=== PATIENT | female | born 1980 | race American Indian/Alaskan Native ===

== ENCOUNTER 2017-02-28 20:22 | Inpatient (IN) | payer MEDICAID ==
[2017-02-28 21:06] LABS: RBC URINE 3 /hpf (0-3); URINE BILIRUBIN NEGATIVE (NEGATIVE); URINE BLOOD NEGATIVE (NEGATIVE); URINE COLOR Yellow (YELLOW); URINE GLUCOSE (UA) NORMAL (Normal); URINE KETONE NEGATIVE (NEGATIVE); URINE LEUKOCYTE ESTERASE TRACE Leu/uL (Negative); URINE PROTEIN NEGATIVE (NEGATIVE); URINE UROBILINOGEN NORMAL mg/dL (0.2-1.0); WBC URINE 13 /hpf (0-5)
--- NOTE | 2017-02-28 21:09 | C.PDOC ---
History Of Present Illness A 36 y/o female comes in c/o heroin and cocaine abuse with her last cocaine use today. Pt request detox of heroin and cocaine. Pt denies suicidal or homicidal ideation, or any physical complaints at this time. Time Seen by Provider: 02/28/17 20:56 Chief Complaint (Nursing): Substance Abuse History Per: Patient History/Exam Limitations: intoxication Onset/Duration Of Symptoms: Hrs Current Symptoms Are (Timing): Still Present Suicide/Self Injury Attempted (Context): None Modifying Factor(s): Cocaine, Other (Heroin) Severity: Mild Associated Symptoms: denies: Suicidal Thoughts, Suicidal Plan Involuntary Hold By: None Recent travel outside of the [place]: No Additional History Per: Patient Past Medical History Reviewed: Historical Data, Nursing Documentation, Vital Signs Vital Signs: Last Vital Signs Temp 97.8 F 02/28/17 22:30 Pulse 67 02/28/17 22:30 Resp 20 02/28/17 22:30 BP 123/81 02/28/17 22:30 Pulse Ox 98 02/28/17 22:30 Family History: States: Unknown Family Hx - Social History Hx Alcohol Use: No Hx Substance Use: Yes - Immunization History Hx Tetanus Toxoid Vaccination: No Hx Influenza Vaccination: No Hx Pneumococcal Vaccination: No Review Of Systems Constitutional: Positive for: Other (Heroin and cocaine abuse). Negative for: Fever, Chills Gastrointestinal: Negative for: Nausea, Vomiting, Abdominal Pain, Diarrhea Neurological: Negative for: Other (LOC) Psych: Negative for: Suicidal ideation, Other (Homicidal ideation) Physical Exam - Physical Exam Appears: No Acute Distress Skin: No Rash Head: Atraumatic, Normacephalic Eye(s): bilateral: Normal Inspection, PERRL Oral Mucosa: Moist Neck: Supple Chest: No Tenderness Cardiovascular: Rhythm Regular, Other (Radial pulse 2+ bilaterally.) Respiratory: Other (Clear to auscultation bilaterally.) Gastrointestinal/Abdominal: Soft, No Tenderness, No Distention Back: No CVA Tenderness Extremity: No Tenderness, No Swelling Neurological/Psych: Other (Alert, no focal deficit.) ED Course And Treatment - Laboratory Results Result Diagrams: 02/28/17 21:14 02/28/17 21:14 O2 Sat by Pulse Oximetry: 97 (RA) Pulse Ox Interpretation: Normal Medical Decision Making Medical Decision Making: Impression: 36 y/o female here 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 Metronidazole administered. Accepted to detox by Dr. Martin. ED OBSERVATION Date of observation admission: 02/28/17 Time of observation admission: 21:15 - Observation admission statement Patient is being placed in observation because:: Heroin and cocaine detox - Goals of Observation Goals of observation are:: Sobriety Disposition - Disposition Disposition: HOSPITALIZED Disposition Time: 22:05 Condition: STABLE - Clinical Impression Clinical Impression: Opioid use disorder, severe, dependence - Scribe Statement The provider has reviewed the documentation as recorded by the Scribe Alden jackson All medical record entries made by the Scribe were at my direction and personally dictated by me. I have reviewed the chart and agree that the record accurately reflects my personal performance of the history, physical exam, medical decision making, and the department course for this patient. I have also personally directed, reviewed, and agree with the discharge instructions and disposition.
[2017-02-28 21:17] LABS: BASO # 0.1 K/uL (0.0-0.2); BASO % 0.7 % (0.0-2.0); EOS # 0.4 K/uL (0.0-0.7); EOS % 3.8 % (0.0-4.0); HEMATOCRIT 37.3 % (34.0-47.0); LYMPH # 2.9 K/uL (1.0-4.3); MEAN CELL VOLUME 93.1 fL (81.0-99.0); MEAN CORPUSCULAR HEMOGLOBIN 32.1 pg (27.0-31.0); MEAN CORPUSCULAR HGB CONC 34.5 g/dL (33.0-37.0); MEAN PLATELET VOLUME 7.6 fL (7.2-11.7); MONO # 0.7 K/uL (0.0-0.8); MONO % 7.3 % (0.0-10.0); RED CELL DISTRIBUTION WIDTH 12.8 % (11.5-14.5); WHITE BLOOD COUNT 9.8 K/uL (4.8-10.8)
[2017-02-28 21:25] LABS: CHLORIDE 106 mmol/L (98-107); SODIUM 143 mmol/L (132-148)
[2017-02-28 21:26] LABS: POTASSIUM 3.9 mmol/L (3.6-5.2)
[2017-02-28 21:27] LABS: GFR AFRICAN-AMERICAN > 60
[2017-02-28 21:28] LABS: ALB/GLOB RATIO 1.2 (1.0-2.1); ALKALINE PHOSPHATASE 89 U/L (38-126); ALT/SGPT 25 U/L (9-52); AST/SGOT 34 U/L (14-36); BILIRUBIN,TOTAL 0.4 mg/dL (0.2-1.3); BLOOD UREA NITROGEN 13 mg/dL (7-17); CARBON DIOXIDE 27 mmol/L (22-30); GLUCOSE,RANDOM 91 mg/dL (65-105); TOTAL PROTEIN 7.2 g/dL (6.3-8.3)
[2017-02-28 21:29] LABS: ALCOHOL SERUM < 10 mg/dl (0-10)
[2017-03-01] MEDS ORDERED: Aluminum Hydroxide/Magnesium Hydroxide Susp (30 mL) PO PRN (00:39)
[2017-03-01 05:51] VITALS: RESP 18
[2017-03-01] MEDS ORDERED: Buprenorphine Hydrochloride 2 mg SL ONE ×2 (09:53→11:00)
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
[2017-03-02] MEDS: Buprenorphine Hydrochloride 2 mg SL SCH (09:00)
[2017-03-02] MEDS: Benzocaine 10% Oral Anesthetic (12 ml) MM PRN (11:36)
--- NOTE | 2017-03-02 11:37 | PCM.PYCHPN ---
Psychiatric Progress Note - Psychiatric Progress Note Patient seen today, length of contact: 17 min Patient Chief Complaint: "I am confused." Problems Identified/Issues Discussed: The pt is seen, chart reviewed, case discussed with staff. The pt is compliant with medications and reports no side-effects. Symptoms are improving but needs more time to stabilize. After care discussed, she says hse is confused about what she wants, ie rehab vs IOP vs MAT. Support and psychoeducation given. She decided to go to an IOP and consider MAT as well, for now. Medication Change: Yes (detox changes daily) Medical Record Reviewed: Yes Mental Status Examination - Cognitive Function Orientation: Person, Place, Situation, Time Memory: Intact Attention: Poor Concentration: Poor Association: WNL Fund of Knowledge: Poor - Mood Mood: Anxious - Affect Affect: Constricted - Speech Speech: Appropriate - Formal Thought Process Formal Thought Process: No Impairment - Suicidal Ideation Suicidal Ideation: No - Homicidal Ideation Homicidal Ideation: No Goal/Treatment Plan - Goal/Treatment Plan Need for Continued Stay: Discharge may exacerbated symptoms, Severe functional impairment Progress Toward Problem(s) and Goals/Treatment Plan: Opioids: -Subutex detox -As needed medications -Support and psychoeducation -Attend groups and activities -MA for abstinence and CBT for relapse prevention Cocaine: -Gabapentin for withdrawal symptoms -As needed medications -Support and psychoeducation -Attend groups and activities -MA for abstinence and CBT for relapse prevention Tobacco: -Patch -MA for abstinence After care: Refer to an IOP and MAT georges Thompson Estimated Date of D/C: 01/02/17
[2017-03-03] MEDS: Buprenorphine Hydrochloride 2 mg SL SCH (09:15)
[2017-03-03] MEDS: Benzocaine 10% Oral Anesthetic (12 ml) MM PRN (12:26)
--- NOTE | 2017-03-03 14:09 | PCM.PYCHPN ---
Psychiatric Progress Note - Psychiatric Progress Note Patient seen today, length of contact: 15 min Patient Chief Complaint: "I am OK" Problems Identified/Issues Discussed: The pt is seen, chart reviewed, case discussed with staff. The pt is compliant with medications and reports no side-effects. Symptoms are improving but needs more time to stabilize. After care discussed, she says she now wants to go to in [facility]. Support given NV used. Medication Change: Yes (detox changes daily) Medical Record Reviewed: Yes Mental Status Examination - Cognitive Function Orientation: Person, Place, Situation, Time Memory: Intact Attention: Poor Concentration: Poor Association: WNL Fund of Knowledge: Poor - Mood Mood: Anxious - Affect Affect: Constricted - Speech Speech: Appropriate - Formal Thought Process Formal Thought Process: No Impairment - Suicidal Ideation Suicidal Ideation: No - Homicidal Ideation Homicidal Ideation: No Goal/Treatment Plan - Goal/Treatment Plan Need for Continued Stay: Discharge may exacerbated symptoms, Severe functional impairment Progress Toward Problem(s) and Goals/Treatment Plan: Opioids: -Subutex detox -As needed medications -Support and psychoeducation -Attend groups and activities -NV for abstinence and CBT for relapse prevention Cocaine: -Gabapentin for withdrawal symptoms -As needed medications -Support and psychoeducation -Attend groups and activities -NV for abstinence and CBT for relapse prevention Tobacco: -Patch -NV for abstinence Estimated Date of D/C: 01/02/17
[2017-03-03 20:29] VITALS: O2SAT 100
[2017-03-04 06:47] VITALS: BP 128/82; PULSE 67; TEMP 97.8
[2017-03-04] MEDS: Buprenorphine Hydrochloride 2 mg SL SCH (07:30)
[2017-03-04] MEDS ORDERED: Pneumococcal 23-Valent Vaccine IM ONE (10:00)
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
== END 2017-03-04 07:30 | disposition home or self-care (01) | DRG 745 ==
LOC: C.ER 20:22 → C.7D 22:05
PROVIDERS: ADMIT Psychiatry & Neurology Psychiatry; ATTEND Psychiatry & Neurology Psychiatry
PROC: HZ52ZZZ Individual Psychotherapy for Substance Abuse Treatment, Cognitive-Behavioral (ICD-10-PCS; principal; 2017-02-28)
PROC: HZ56ZZZ Individual Psychotherapy for Substance Abuse Treatment, Psychoeducation (ICD-10-PCS; 2017-02-28)
PROC: HZ59ZZZ Individual Psychotherapy for Substance Abuse Treatment, Supportive (ICD-10-PCS; 2017-02-28)
PROC: HZ2ZZZZ Detoxification Services for Substance Abuse Treatment (ICD-10-PCS; 2017-02-28)
DX: F11.23 Opioid dependence with withdrawal (principal); F14.10 Cocaine abuse, uncomplicated; F17.210 Nicotine dependence, cigarettes, uncomplicated; B37.9 Candidiasis, unspecified